=== PATIENT | female | born 1960 | race Two or more races ===

== ENCOUNTER 2021-07-21 11:57 | Outpatient (CLI) | payer OTHER ==
[~2021-07-21 11:57] MED LIST: CYMBALTA20 MG; FLEXERIL10 MG; ULTRACET
== END 2021-07-21 12:00 | disposition home or self-care (01) ==
LOC: MAMO-SONO 11:57
DX: N64.4 Mastodynia (principal)

== ENCOUNTER 2022-06-24 11:20 | Outpatient (CLI) | payer OTHER | END 2022-06-24 11:33 | disposition home or self-care (01) | LOC: SONOGRAMA 11:20 | PROVIDERS: ATTEND General Practice | DX: N20.0 Calculus of kidney (principal); N28.1 Cyst of kidney, acquired ==

== ENCOUNTER 2022-07-15 09:49 | Outpatient (CLI) | payer OTHER | END 2022-07-15 10:02 | disposition home or self-care (01) | LOC: LAB 09:49 | PROVIDERS: ATTEND Urology | DX: N20.0 Calculus of kidney (principal); N39.0 Urinary tract infection, site not specified; I47.1 Supraventricular tachycardia ==

== ENCOUNTER 2022-07-29 10:43 | Inpatient (IN) | payer OTHER ==
[~2022-07-29] VITALS: Ht 149.9 cm; Wt 56.2 kg
[2022-07-29] MEDS ORDERED: METOPROLOL PO (16:35)
[2022-07-30] MEDS ORDERED: CRESTOR10 MG PO (08:19)
[2022-07-30] MEDS ORDERED: BACTRIM DS TAB1 EACH PO (08:20)
[2022-08-05] MEDS ORDERED: METOPROLOL SUCC25 MG (07:49)
[2022-08-05] MEDS ORDERED: BACTRIM DS TAB1 EACH (07:50)
[2022-08-05] MEDS ORDERED: ROSUVASTATIN CA20 MG (07:50)
== END 2022-08-07 09:07 | disposition home or self-care (01) | DRG 694 ==
LOC: O/R 08-05 06:20 → SURG 08-05 07:00
PROVIDERS: ADMIT Urology; ATTEND Urology
PROC: BT1FYZZ Fluoroscopy of Left Kidney, Ureter and Bladder using Other Contrast (ICD-10-PCS; 2022-08-05)
PROC: 0TC18ZZ Extirpation of Matter from Left Kidney, Via Natural or Artificial Opening Endoscopic (ICD-10-PCS; principal; 2022-08-05 07:00)
PROC: 30233N1 Transfusion of Nonautologous Red Blood Cells into Peripheral Vein, Percutaneous Approach (ICD-10-PCS; 2022-08-06)
PROC: BT12YZZ Fluoroscopy of Left Kidney using Other Contrast (ICD-10-PCS; 2022-08-07)
DX: N20.0 Calculus of kidney (principal); D50.0 Iron deficiency anemia secondary to blood loss (chronic)

== ENCOUNTER 2022-08-21 08:02 | Outpatient (CLI) | payer OTHER ==
[~2022-08-21 08:02] MED LIST changes: +BACTRIM DS TAB1 EACH; +BACTRIM DS TAB1 EACH PO; +CRESTOR10 MG PO; +METOPROLOL PO; +METOPROLOL SUCC25 MG; +ROSUVASTATIN CA20 MG
== END 2022-08-21 08:06 | disposition home or self-care (01) ==
LOC: RAD 08:02
PROVIDERS: ATTEND Urology
DX: N20.0 Calculus of kidney (principal)